=== PATIENT | female | born 1975 | race Caucasian/White ===

== ENCOUNTER 2018-01-28 06:58 | Emergency (ER) | payer BC ==
[~2018-01-28] VITALS: Ht 167.6 cm; Wt 113.2 kg
[~2018-01-28 06:58] MED LIST: NORG1TAB7 PO
[2018-01-28] MEDS ORDERED: BUPR75 PO (07:06)
[2018-01-28 08:10] LABS: APPEARANCE,URINE CLOUDY (CLEAR); BILIRUBIN,URINE NEGATIVE (NEGATIVE); GLUCOSE, URINE (UA) NEGATIVE (NEGATIVE); KETONES,URINE NEGATIVE (NEGATIVE); LEUKOCYTE ESTERASE ,URINE LARGE (NEGATIVE); NITRATE,URINE NEGATIVE (NEGATIVE); OCCULT BLOOD,URINE LARGE (NEGATIVE); PROTEIN,URINE POS 1+ (NEGATIVE); UROBILINOGEN,URINE 0.2 mg/dL (<=1.0)
[2018-01-28] MEDS ORDERED: KETOROLAC TROMETHAMINE 60 MG/2 ML VIAL IM ONE (08:15)
[2018-01-28 08:25] LABS: WBC,URINE 26-50 /HPF (0-5)
[2018-01-28 08:31] LABS: BACTERIA,URINE Few /HPF (None Seen)
[2018-01-28 08:32] LABS: SQUAMOUS EPITHELIAL CELL,UR Many /LPF (None Seen)
[2018-01-28] MEDS ORDERED: PHENAZOPYRIDINE HCL 100 MG TABLET PO ONE (10:15)
[2018-01-28] MEDS ORDERED: CIPROFLOXACIN HCL 250 MG TABLET PO ONE (10:15)
[2018-01-28 10:40] VITALS: BP 126/78
== END 2018-01-28 11:12 | disposition home or self-care (01) ==
LOC: EMS 06:58
DX: N39.0 Urinary tract infection, site not specified (principal); M79.7 Fibromyalgia; Z87.440 Personal history of urinary (tract) infections
CPT/HCPCS: 74176; 81001; 81025; 87077; 87086; 87186; 96372; 99285; J1885